=== PATIENT | female | born 1990 | race Asian ===

== ENCOUNTER 2017-03-04 22:00 | Inpatient (IN) | payer OTHER ==
--- NOTE | 2017-03-04 23:13 | HP ---
Past Medical History - Admission Chief Complaint: Labor pain History of Present Illness: 26 yo @ 39 weeks gestation, EDC 03/07/17, presents c/o labor pain. She denies any vaginal bleeding nor rupture of membrane. History Source: Patient Limitations to Obtaining History: No Limitations - Past Medical History ...: 2 ...Para: 1 ...EDC by Lukeo: 03/07/17 - Past Surgical History Past Surgical History: Yes: None Hx Myomectomy: No Hx Transabdominal Cerclage: No - Smoking History Have you smoked in the past 12 months: No - Alcohol/Substance Use Hx Alcohol Use: No History of Substance Use: reports: None - Social History Usual Living Arrangement: Yes: With Spouse History of Recent Travel: No Family Disease History - Family Disease History Family History: Unremarkable Review of Systems - Review of Systems Constitutional: reports: No Symptoms Eyes: reports: No Symptoms HENT: reports: No Symptoms Neck: reports: No Symptoms Cardiovascular: reports: No Symptoms Respiratory: reports: No Symptoms Gastrointestinal: reports: No Symptoms Genitourinary: reports: Pain Breasts: reports: No Symptoms Reported Musculoskeletal: reports: No Symptoms Integumentary: reports: No Symptoms Neurological: reports: No Symptoms Endocrine: reports: No Symptoms Hematology/Lymphatic: reports: No Symptoms Psychiatric: reports: No Symptoms Pain Intensity: 6 Physical Exam - Maternity Constitutional: Yes: Well Nourished Eyes: Yes: Conjunctiva Clear HENT: Yes: Atraumatic Neck: Yes: Supple, Trachea Midline Cardiovascular: Yes: Regular Rate and Rhythm Lungs: Clear to auscultation Breast(s): Yes: WNL - Abdominal Exam/OB Number of Fetuses: Single Presentation: Vertex Contractions: Yes Regularity: Regular Intensity: Moderate Category: I Decelerations: None - Vaginal Exam/OB Vaginal Bleediing: No Speculum Exam: No Dilatation (cm): 6 Effacement (%): 90 Amniotic Membrane Status: Intact Presentation: Vertex/Position Station: -2 - Physical Exam Musculoskeletal: Yes: WNL Extremities: Yes: WNL Integumentary: Yes: WNL ...Motor Strength: WNL Psychiatric: Yes: Alert, Oriented Problem List - Problems (1) Pain during labor Code(s): O99.89 - OTH DISEASES AND CONDITIONS COMPL PREG/CHLDBRTH R52 - PAIN, UNSPECIFIED Assessment/Plan Active labor Admit to L&D Analgesia as needed Anticipate
[2017-03-04] MEDS ORDERED: DEXTROSE 5%-LACTATED RINGERS 1,000 ML IV SCH ×2 (23:15→23:30)
[2017-03-04] MEDS ORDERED: BUTORPHANOL TARTRATE 1 MG/ML VIAL IVPUSH PRN (23:16)
[2017-03-04] MEDS ORDERED: PROMETHAZINE HCL 25 MG/1 ML VIAL IVPB PRN (23:17)
[2017-03-04 23:26] VITALS: BMI 24.7
[2017-03-04 23:28] LABS: BASOPHIL 0.3 % (0-2.0); EOSINOPHIL 0.4 % (0-4.5); MCH 20.1 pg (25.7-33.7); MCHC 31.3 g/dl (32.0-36.0); MEAN PLT VOLUME 7.4 fl (7.5-11.1); NEUTROPHILS 62.8 % (42.8-82.8); PLATELET COUNT 258 K/MM3 (134-434); RDW 16.1 % (11.6-15.6); WHITE BLOOD COUNT 17.9 K/mm3 (4.0-10.0)
[2017-03-04] MEDS ORDERED: TUBERCULIN PPD 5 TU/0.1ML SYRINGE (IN PATIENT USE ONLY) ID ONE (23:30)
[2017-03-04 23:43] LABS: INR 0.94 (0.82-1.09); PROTHROMBIN TIME (PATIENT) 10.3 SEC (9.98-11.88)
[2017-03-05 00:13] LABS: ANION GAP 12 (8-16); CALCIUM 9.1 mg/dL (8.5-10.1); CO2 24 mmol/L (21-32); CREATININE 0.5 mg/dL (0.55-1.02); GLUCOSE,RANDOM 75 mg/dL (74-106)
[2017-03-05] MEDS: D5W-LR W/ 20 UNITS OXYTOCIN 1,000 ML IV SCH ×2 (00:35→11:00)
[2017-03-05] MEDS ORDERED: WITCH HAZEL 50% (TUCKS) 40 PAD/JAR PAD TP PRN (00:54)
[2017-03-05] MEDS ORDERED: METHYLERGONOVINE MALEATE 0.2 MG/1 ML AMP IM PRN (00:54)
[2017-03-05] MEDS ORDERED: BENZOCAINE 20% 57 GM BOTTLE TP PRN (00:54)
[2017-03-05] MEDS ORDERED: BISACODYL 10 MG SUPP.RECT RC PRN (00:54)
[2017-03-05] MEDS ORDERED: BENZOCAINE 28 GM HEMORRHOIDAL OINTMENT TP PRN (00:54)
--- NOTE | 2017-03-05 00:58 | PN ---
Delivery - Delivery Vaginal Delivery: Spontaneous Type of Anesthesia: Local Episiotomy/Laceration: 1st degree EBL (cc): 250 Delivery, Single - Stages of Labor Date 1st Stage Initiatied: 03/04/17 Time 1st Stage Initiated: 16:00 Date 2nd Stage Initiated: 03/05/17 Time 2nd Stage Initiated: 00:25 Date of Delivery: 03/05/17 Time of Delivery: 00:32 Time Placenta Delivered: 00:35 - Condition of Mercury Purifier/Fire Operations Forester Present: No Gender: Male Position: Left, OA Total Hours ROM (Hrs/Mins): 2h - 1 Minute Total Score: 9 5 Minutes Total Score: 9 - Feeding Plan Initial Plan: Elected not to breastfeed exclusively throughout hospitalization Remarks - Remarks Remarks: Normal spontaneous vaginal delivery of a live boy. Nose / Oropharynx suctioned @ perineum. Cord clamped and cut. Placenta expelled spontaneously intact. First degree laceration repaired with 2.0 Biosyn.
--- NOTE | 2017-03-05 01:02 | DS ---
Physical Exam-PERSONAL FINANCIAL COUNSELOR Vital Signs: Vital Signs Temperature 98.1 F 03/05/17 00:00 Pulse Rate 111 H 03/05/17 00:00 Respiratory Rate 20 03/05/17 00:00 Blood Pressure 140/91 03/05/17 00:00 O2 Sat by Pulse Oximetry (%) Constitutional: Yes: Well Nourished Eyes: Yes: Conjunctiva Clear HENT: Yes: Atraumatic Neck: Yes: Supple, Trachea Midline Cardiovascular: Yes: Regular Rate and Rhythm Respiratory: Yes: Regular, CTA Bilaterally Gastrointestinal: Yes: Normal Bowel Sounds Vaginal Exam: Yes: Normal Cervix: Yes: Normal Uterus: Yes: Firm ....Post : Yes: Uterus firm, Moderate lochia serosa Breast(s): Yes: WNL Musculoskeletal: Yes: WNL Extremities: Yes: WNL Neurological: Yes: Alert, Oriented ...Motor Strength: WNL Psychiatric: Yes: Alert, Oriented Labs: CBC, BMP 03/04/17 23:05 03/04/17 23:05 Delivery - Delivery Vaginal Delivery: Spontaneous Type of Anesthesia: Local Episiotomy/Laceration: 1st degree EBL (cc): 250 Delivery, Single - Stages of Labor Date 1st Stage Initiatied: 03/04/17 Time 1st Stage Initiated: 16:00 Date 2nd Stage Initiated: 03/05/17 Time 2nd Stage Initiated: 00:25 Date of Delivery: 03/05/17 Time of Delivery: 00:32 Time Placenta Delivered: 00:35 - Condition of Supervisor Reclamation/Supervisor Die Casting Present: No Infant Gender: Male Position: Left, OA Total Hours ROM (Hrs/Mins): 2h - 1 Minute Total Score: 9 5 Minutes Total Score: 9 - Feeding Plan Initial Plan: Elected not to breastfeed exclusively throughout hospitalization Discharge Summary Reason For Visit: LABOR Current Active Problems Pain during labor (Acute) Status post normal vaginal delivery (Acute) Procedures: Principal: Normal spontaneous vaginal delivery Hospital Course: Routine care Condition: Good - Instructions Diet, Activity, Other Instructions: Regular diet No douching, no sexual intercourse x 6 weeks Referrals: Morena Pinedo MD [Staff Physician] - Disposition: HOME - Home Medications Comprehensive Discharge Medication List: Ambulatory Orders Vit/Iron Fumarate/FA [ Tablet] 1 tablet PO DAILY 03/05/17
[2017-03-05 01:07] LABS: HIV 1 & 2 AB NEGATIVE; HIV 1 AGp24 NEGATIVE
[2017-03-05 01:47] LABS: ANISOCYTOSIS OCC; HYPOCHROMIA OCC; POLYCHROMASIA FEW
[2017-03-05 01:48] LABS: MICROCYTOSIS OCC; PLATELET ESTIMATE ADEQUATE (NORMAL)
[2017-03-05] MEDS: ACETAMINOPHEN 325 MG TABLET (FP) PO PRN ×2 (03:51→15:55)
[2017-03-05] MEDS: IBUPROFEN 600 MG TABLET (FP) PO PRN ×2 (03:53→15:53)
[2017-03-05] MEDS: FERROUS SO4 325 MG TABLET (FP) PO SCH ×3 (09:02→17:56)
[2017-03-05] MEDS: PRENATAL VITAMINS W/ FOLIC ACID TABLET (FP) PO SCH (09:03)
[2017-03-06] MEDS: IBUPROFEN 600 MG TABLET (FP) PO PRN ×2 (07:24→17:09)
[2017-03-06] MEDS: ACETAMINOPHEN 325 MG TABLET (FP) PO PRN ×3 (07:25→22:07)
[2017-03-06] MEDS: FERROUS SO4 325 MG TABLET (FP) PO SCH ×3 (07:26→17:10)
[2017-03-06 08:18] LABS: BASOPHIL 0.6 % (0-2.0); EOSINOPHIL 1.9 % (0-4.5); MCH 20.8 pg (25.7-33.7); MCHC 32.6 g/dl (32.0-36.0); MEAN CELL VOLUME 63.6 fl (80-96); MEAN PLT VOLUME 6.9 fl (7.5-11.1); PLATELET COUNT 230 K/MM3 (134-434); RDW 16.2 % (11.6-15.6); WHITE BLOOD COUNT 17.3 K/mm3 (4.0-10.0)
[2017-03-06] MEDS: PRENATAL VITAMINS W/ FOLIC ACID TABLET (FP) PO SCH (09:36)
--- NOTE | 2017-03-06 16:47 | PN ---
Post Progress Note - Subjective Subjective: Pt seen/evaluated and doing well. Pain controlled, tolerating diet, voiding, ambulating. Moderate lochia overnight, now scant. Denies dizziness. Denies CP/SOB/F/C/AL. Post Day: 1 Type of Delivery: Vital Signs: Vital Signs Temperature 98.2 F 03/06/17 07:15 Pulse Rate 68 03/06/17 07:15 Respiratory Rate 20 03/06/17 07:15 Blood Pressure 124/70 03/06/17 07:15 O2 Sat by Pulse Oximetry (%) 98 03/05/17 01:10 Uterus: Yes: Fundus Firm, Fundus below umbilicus Lochia, amount: Small Extremities: Yes: Calves non-tender. No: Edema Perineum: Yes: Laceration (repaired) Activity: Ambulating - Labs Labs: CBC WBC 17.3 K/mm3 (4.0-10.0) H 03/06/17 07:50 RBC 4.73 M/mm3 (3.60-5.2) 03/06/17 07:50 Hgb 9.8 GM/dL (10.7-15.3) L D 03/06/17 07:50 Hct 30.1 % (32.4-45.2) L D 03/06/17 07:50 MCV 63.6 fl (80-96) L 03/06/17 07:50 MCHC 32.6 g/dl (32.0-36.0) 03/06/17 07:50 RDW 16.2 % (11.6-15.6) H 03/06/17 07:50 Plt Count 230 K/MM3 (134-434) 03/06/17 07:50 MPV 6.9 fl (7.5-11.1) L 03/06/17 07:50 Neutrophils % 67.0 % (42.8-82.8) 03/06/17 07:50 Lymphocytes % 26.3 % (8-40) 03/06/17 07:50 Monocytes % 4.2 % (3.8-10.2) 03/06/17 07:50 Eosinophils % 1.9 % (0-4.5) D 03/06/17 07:50 Basophils % 0.6 % (0-2.0) 03/06/17 07:50 Platelet Estimate Adequate (NORMAL) 03/04/17 23:05 Polychromasia Few 03/04/17 23:05 Hypochromic-Microcytic Occ 03/04/17 23:05 Anisocytosis Occ 03/04/17 23:05 Microcytosis Occ 03/04/17 23:05 Macrocytosis Occ 03/04/17 23:05 Problem List - Problems (1) Status post normal vaginal delivery Code(s): MOE0736 - (2) Anemia Code(s): D64.9 - ANEMIA, UNSPECIFIED Assessment/Plan 26 y/o post day #1 s/p normal - AFVSS - Hgb 9.8, continue vitamins, lochia minimal, pt stable/asymptomatic - regular diet, ambulation, PO pain meds - routine care, plan for discharge home in a.m.
[2017-03-06] MEDS ORDERED: SENNOSIDES/DOCUSATE COMBO (SENNA PLUS) TABLET (UD) PO PRN (22:00)
[2017-03-07] MEDS: FERROUS SO4 325 MG TABLET (FP) PO SCH (08:00)
[2017-03-07] MEDS: PRENATAL VITAMINS W/ FOLIC ACID TABLET (FP) PO SCH (10:46)
[2017-03-07 11:45] VITALS: BP 118/64; PULSE 76; TEMP 97.9
== END 2017-03-07 11:50 | disposition home or self-care (01) | DRG 560 ==
LOC: JLDR 22:00 → J3W 03-05 02:01
PROVIDERS: ADMIT Obstetrics & Gynecology; ATTEND Obstetrics & Gynecology
PROC: 0HQ9XZZ Repair Perineum Skin, External Approach (ICD-10-PCS; principal; 2017-03-05)
PROC: 10E0XZZ Delivery of Products of Conception, External Approach (ICD-10-PCS; 2017-03-05)
DX: O70.0 First degree perineal laceration during delivery (principal); Z3A.38 38 weeks gestation of pregnancy; Z37.0 Single live birth; O90.81 Anemia of the puerperium
CPT/HCPCS: 36415; 59409; 80048; 85025; 85610; 85730; 86593; 86850; 86900; 86901; 87389

== ENCOUNTER 2019-11-12 17:25 | Inpatient (IN) | payer OTHER ==
[2019-11-12 18:01] VITALS: BMI 26.4
[2019-11-12 19:17] LABS: BASO % 0.2 % (0-2.0); EOS % 0.8 % (0-4.5); HEMATOCRIT 34.8 % (32.4-45.2); HEMOGLOBIN 11.1 GM/dL (10.7-15.3); LYMPH % 30.4 % (8-40); MCH 20.8 pg (25.7-33.7); MEAN CELL VOLUME 64.9 fl (80-96); MEAN PLT VOLUME 7.6 fl (7.5-11.1); MONO % 6.9 % (3.8-10.2); NEUT % 61.7 % (42.8-82.8); PLATELET COUNT 272 K/MM3 (134-434); RBC 5.36 M/mm3 (3.60-5.2); RDW 15.7 % (11.6-15.6)
[2019-11-12] MEDS ORDERED: DINOPROSTONE 10 MG VAGINAL SUPPOSITORY VG ONE (19:30)
[2019-11-12 19:32] LABS: INR 0.98 (0.83-1.09); PROTHROMBIN TIME (PATIENT) 11.6 SEC (9.7-13.0)
[2019-11-12 19:35] LABS: ACTIVATED PTT 27.1 SECONDS (25.2-36.5)
[2019-11-12 19:48] LABS: BLOOD UREA NITROGEN 11.4 mg/dL (7-18); CALCIUM 9.1 mg/dL (8.5-10.1); CREATININE 0.5 mg/dL (0.55-1.3); POTASSIUM 3.9 mmol/L (3.5-5.1)
[2019-11-12] MEDS: DEXTROSE 5%-LACTATED RINGERS 1,000 ML IV SCH ×2 (20:00→21:00)
[2019-11-12 20:29] LABS: ANISOCYTOSIS 1+; PLATELET ESTIMATE ADEQUATE; TEAR DROP CELLS 1+
[2019-11-12] MEDS ORDERED: CITRIC ACID/SODIUM CITRATE 30 ML UNIT-DOSE CUP PO ONE (21:26)
--- NOTE | 2019-11-12 21:35 | HP ---
Past Medical History - Admission Chief Complaint: Elective induction History of Present Illness: 28 yo , @ 40 weeks gestation, EDC 11/12/19, admitted for induction of labor. She has no complaints. She carries a fetus with mild enlargement of the ventricles. History Source: Patient Limitations to Obtaining History: No Limitations - Past Medical History ...: 3 ...Para: 2 ...Term: 2 ...EDC by Sono: 11/12/19 - Past Surgical History Past Surgical History: Yes: None Hx Myomectomy: No Hx Transabdominal Cerclage: No - Smoking History Smoking history: Never smoked Have you smoked in the past 12 months: No - Alcohol/Substance Use Hx Alcohol Use: No History of Substance Use: reports: None - Social History History of Recent Travel: No Home Medications - Allergies Allergies/Adverse Reactions: Allergies Allergy/AdvReac Type Severity Reaction Status Date / Time No Known Drug Allergies Allergy Verified 11/12/19 17:39 - Home Medications Home Medications: Ambulatory Orders Vit/Iron Fum/Folic AC [ Tablet] 1 tablet PO DAILY 03/05/17 Ferrous Sulfate [Feosol] 325 mg PO DAILY 11/02/19 Family Medical History Family History: Unremarkable Review of Systems - Review of Systems Constitutional: reports: No Symptoms Eyes: reports: No Symptoms HENT: reports: No Symptoms Neck: reports: No Symptoms Cardiovascular: reports: No Symptoms Respiratory: reports: No Symptoms Genitourinary: reports: No Symptoms Breasts: reports: No Symptoms Reported Musculoskeletal: reports: No Symptoms Integumentary: reports: No Symptoms Neurological: reports: No Symptoms Psychiatric: reports: No Symptoms Pain Intensity: 0 Physical Exam - Maternity Vital Signs: Vital Signs Temperature 98.7 F 11/12/19 17:30 Pulse Rate 88 11/12/19 21:00 Respiratory Rate 20 11/12/19 21:00 Blood Pressure 133/66 11/12/19 21:00 O2 Sat by Pulse Oximetry (%) Constitutional: Yes: No Distress Eyes: Yes: Conjunctiva Clear HENT: Yes: Atraumatic Neck: Yes: Supple Cardiovascular: Yes: Regular Rate and Rhythm Lungs: Clear to auscultation - Abdominal Exam/OB Number of Fetuses: Single Presentation: Vertex - Vaginal Exam/OB Dilatation (cm): 1 Effacement (%): 60 Amniotic Membrane Status: Intact - Physical Exam ...Motor Strength: WNL Psychiatric: Yes: Alert, Oriented - Labs Lab Results: CBC, BMP 11/12/19 18:30 11/12/19 18:30 Problem List - Problems (1) 40 weeks gestation of Problems reviewed: Yes Code(s): Z3A.40 - 40 WEEKS GESTATION OF Assessment/Plan 40 weeks gestation Admit to L&D Cervidil induction Chain Mender for delivery
[2019-11-12] MEDS ORDERED: PROMETHAZINE HCL 25 MG/1 ML VIAL ONE (23:29)
[2019-11-12] MEDS ORDERED: BUTORPHANOL TARTRATE 1 MG/ML VIAL ONE (23:29)
--- NOTE | 2019-11-12 23:35 | CONSULT ---
Past Medical History, Laborist - Admission Chief Complaint: tachycardia History of Present Illness: Called to pt. at 21:15 hours because of tachycardia. Cervidil induction. Pt. developed active, painful ctx. Cervidil removed. FH cat 2. Baseline seems to be 160 with multiple accelerations. Tachysystole. Uncomfortable. D/W PCP. Stadol/Phenergan to slow ctx and relieve pt's pain. History Source: Patient, Medical Record Limitations to Obtaining History: No Limitations - Past Medical History CREDIT MANAGER: Denies/None Cardio/Vascular: Denies/None Pulmonary: Denies/None Gastrointestinal: Denies/None Hepatobiliary: Denies/None Renal/: Denies/None Reproductive: Denies/None ...: 3 ...Para: 2 ...Term: 2 ...EDC by Michel: 11/12/19 Heme/Onc: Denies/None Infectious Disease: Denies/None Psych: Denies/None Musculoskeletal: Denies/None Rheumatology: Denies/None ENT: Denies/None Endocrine: Denies/None Dermatology: Denies/None - Past Surgical History Past Surgical History: Yes: None - Smoking History Smoking history: Never smoked Have you smoked in the past 12 months: No - Alcohol/Substance Use Hx Alcohol Use: No History of Substance Use: reports: None - Social History History of Recent Travel: No Review of Systems - Review of Systems Constitutional: reports: No Symptoms Eyes: reports: No Symptoms HENT: reports: No Symptoms Neck: reports: No Symptoms Cardiovascular: reports: No Symptoms Respiratory: reports: No Symptoms Gastrointestinal: reports: No Symptoms Genitourinary: reports: No Symptoms Breasts: reports: No Symptoms Reported Musculoskeletal: reports: No Symptoms Integumentary: reports: No Symptoms Neurological: reports: No Symptoms Endocrine: reports: No Symptoms Hematology/Lymphatic: reports: No Symptoms Psychiatric: reports: No Symptoms Physical Exam - Maternity Vital Signs: Vital Signs Temperature 98.7 F 11/12/19 22:00 Pulse Rate 85 11/12/19 23:00 Respiratory Rate 20 11/12/19 23:00 Blood Pressure 113/71 11/12/19 23:00 O2 Sat by Pulse Oximetry (%) Constitutional: Yes: Well Nourished, No Distress, Calm Eyes: Yes: WNL, Conjunctiva Clear, EOM Intact HENT: Yes: WNL, Atraumatic, Normocephalic Neck: Yes: WNL, Supple, Trachea Midline Cardiovascular: Yes: WNL, Regular Rate and Rhythm Breast(s): Yes: WNL - Abdominal Exam/OB Fundal Height: 40 Number of Fetuses: Single Presentation: Vertex Contractions: Yes Regularity: Tripling Intensity: Moderate Monitor Mode: External Heart Rate (range): 160 Heart Rate Location: RUQ Category: II Accelerations: Uniform Decelerations: None - Vaginal Exam/OB Vaginal Bleediing: No Dilatation (cm): 0 Effacement (%): 0 Amniotic Membrane Status: Intact Presentation: Vertex/Position Station: -3 - Physical Exam Musculoskeletal: Yes: WNL Extremities: Yes: WNL Edema: Yes Integumentary: Yes: WNL ...Motor Strength: WNL Psychiatric: Yes: WNL - Labs Lab Results: CBC, BMP 11/12/19 18:30 11/12/19 18:30 Problem List - Problems (1) tachycardia Code(s): LYJ1669 - (2) 40 weeks gestation of Code(s): Z3A.40 - 40 WEEKS GESTATION OF Assessment/Plan Stable. Stadol 1mg/ Phenergan 25 mg. Observe. D/W pt. and attending.
[2019-11-12] MEDS ORDERED: PROMETHAZINE HCL 25 MG/1 ML VIAL IVPB ONE (23:45)
[2019-11-12] MEDS ORDERED: BUTORPHANOL TARTRATE 1 MG/ML VIAL IVPB ONE (23:45)
[2019-11-13] MEDS: ELECTROLYTE-148 SOLN 1,000 ML IV SCH
[2019-11-13] MEDS ORDERED: FENTANYL/BUPIVACAINE/NS/PF - PCEA - 50 ML DISP.SYRIN EP ONE (07:48)
[2019-11-13] MEDS: FENTANYL/BUPIVACAINE/NS/PF - PCEA - 50 ML DISP.SYRIN EP SCH (08:15)
[2019-11-13] MEDS ORDERED: BUPIVACAINE HCL/PF 0.25% (2.5MG/ML) 10 ML VIAL ONE (08:23)
[2019-11-13] MEDS ORDERED: NALOXONE HCL 0.4 MG/ML VIAL IVPUSH PRN (08:44)
[2019-11-13] MEDS ORDERED: OXYTOCIN 30 UNITS in 0.9% NS 30 UNIT/500 ML INFUS.BAG IVPB ONE (09:01)
[2019-11-13] MEDS ORDERED: OXYTOCIN 30 UNITS in 0.9% NS 30 UNIT/500 ML INFUS.BAG IVPB SCH (09:15)
[2019-11-13] MEDS ORDERED: OXYTOCIN 20 UNITS in 0.9% NS 20 UNIT/1,000 ML INFUS.BAG IV ONE (10:54)
[2019-11-13] MEDS: METHYLERGONOVINE MALEATE 0.2 MG/1 ML AMP IM PRN ×2 (12:30→21:16)
[2019-11-13] MEDS ORDERED: BENZOCAINE 20% 57 GM BOTTLE TP PRN ×2 (13:31→13:32)
[2019-11-13] MEDS ORDERED: METHYLERGONOVINE MALEATE 0.2 MG/1 ML AMP IM PRN (13:31)
[2019-11-13] MEDS ORDERED: WITCH HAZEL 50% (TUCKS) 40 PAD/JAR PAD TP PRN ×2 (13:31→13:32)
[2019-11-13] MEDS ORDERED: ACETAMINOPHEN 325 MG TABLET (FP) PO PRN (13:31)
[2019-11-13] MEDS ORDERED: IBUPROFEN 600 MG TABLET (FP) PO PRN (13:31)
[2019-11-13] MEDS ORDERED: BISACODYL 10 MG SUPP.RECT RC PRN ×2 (13:31→13:32)
[2019-11-13] MEDS ORDERED: BENZOCAINE 28 GM HEMORRHOIDAL OINTMENT TP PRN ×2 (13:31→13:32)
--- NOTE | 2019-11-13 13:35 | PN ---
Delivery - Delivery Vaginal Delivery: Spontaneous Type of Anesthesia: Epidural Episiotomy/Laceration: 1st degree EBL (cc): 300 Delivery, Single - Stages of Labor Date 1st Stage Initiatied: 11/12/19 Time 1st Stage Initiated: 20:00 Date 2nd Stage Initiated: 11/13/19 Time 2nd Stage Initiated: 10:55 Date of Delivery: 11/13/19 Time of Delivery: 11:17 Time Placenta Delivered: 11:19 - Condition of Infant Pleating Machine Operator/Cut Press Operator Present: Yes Infant Gender: Male Weight: 7 lb 14 oz Position: Left, OA Total Hours ROM (Hrs/Mins): 3 hr 44 minutes - 1 Minute Total Score: 9 5 Minutes Total Score: 9 - Feeding Plan Initial Plan: Exclusive throughout hospitalization Remarks - Remarks Remarks: Normal spontaneous vaginal delivery of a live boy over first degree laceration. Nose / Oropharynx suctioned @ perineum. Cord clamped and cut. Baby handed to nurse. Placenta expelled spontaneously intact. Laceration repaired with 2.0 Chromic. Mother in stable condition.
[2019-11-13] MEDS ORDERED: ACETAMINOPHEN 325 MG TABLET (FP) ONE (13:44)
[2019-11-13] MEDS ORDERED: OXYTOCIN 20 UNITS in 0.9% NS 20 UNIT/1,000 ML INFUS.BAG IV SCH (13:45)
[2019-11-13] MEDS: ACETAMINOPHEN 325 MG TABLET (FP) PO PRN ×2 (13:45→21:11)
[2019-11-13] MEDS ORDERED: PROMETHAZINE HCL 25 MG/1 ML VIAL ONE (14:23)
[2019-11-13] MEDS ORDERED: BUTORPHANOL TARTRATE 1 MG/ML VIAL ONE ×2 (14:23)
[2019-11-13] MEDS: FERROUS SO4 325 MG TABLET (FP) PO SCH (17:12)
[2019-11-13] MEDS: IBUPROFEN 600 MG TABLET (FP) PO PRN (21:11)
[2019-11-14] MEDS: ACETAMINOPHEN 325 MG TABLET (FP) PO PRN (01:31)
[2019-11-14 08:39] LABS: BASO % 0.3 % (0-2.0); EOS % 1.2 % (0-4.5); HEMATOCRIT 30.9 % (32.4-45.2); HEMOGLOBIN 9.9 GM/dL (10.7-15.3); LYMPH % 28.4 % (8-40); MCH 20.7 pg (25.7-33.7); MEAN CELL VOLUME 64.7 fl (80-96); MEAN PLT VOLUME 7.4 fl (7.5-11.1); MONO % 4.3 % (3.8-10.2); NEUT % 65.8 % (42.8-82.8); PLATELET COUNT 239 K/MM3 (134-434); RBC 4.77 M/mm3 (3.60-5.2); RDW 16.4 % (11.6-15.6); WHITE BLOOD COUNT 13.3 K/mm3 (4.0-10.0)
[2019-11-14] MEDS ORDERED: LACTATED RINGERS SOLUTION 1,000 ML/1,000 ML INFUS.BAG IV STA (08:51)
[2019-11-14] MEDS: DOCUSATE SODIUM 100 MG CAPSULE (FP) PO SCH ×2 (09:12→21:23)
[2019-11-14] MEDS: ACETAMINOPHEN/CAFFEINE/BUTALBITAL 1 TAB PO PRN ×4 (09:12→21:24)
[2019-11-14] MEDS: PRENATAL VITAMINS W/ FOLIC ACID TABLET (FP) PO SCH (09:12)
[2019-11-14] MEDS: FERROUS SO4 325 MG TABLET (FP) PO SCH ×2 (09:12→17:52)
[2019-11-14] MEDS: IBUPROFEN 600 MG TABLET (FP) PO PRN ×4 (09:13→22:53)
[2019-11-14] MEDS: FENTANYL/BUPIVACAINE/NS/PF - PCEA - 50 ML DISP.SYRIN EP SCH (09:28)
[2019-11-14] MEDS: ELECTROLYTE-148 SOLN 1,000 ML IV SCH (09:28)
[2019-11-14] MEDS: DEXTROSE 5%-LACTATED RINGERS 1,000 ML IV SCH (09:29)
--- NOTE | 2019-11-14 09:31 | PN ---
Post Note - Post Date of Delivery: 11/13/19 Post Day: 1 Vital Signs: Vital Signs - 24 hr 11/13/19 11/13/19 11/13/19 09:45 10:00 10:15 Temperature Pulse Rate 91 H 76 87 Respiratory 17 17 17 Rate Blood Pressure 113/82 113/68 124/76 O2 Sat by Pulse 99 99 100 Oximetry (%) 11/13/19 11/13/19 11/13/19 10:30 10:45 11:00 Temperature Pulse Rate 81 90 83 Respiratory 17 17 18 Rate Blood Pressure 112/77 122/87 136/79 O2 Sat by Pulse 100 100 100 Oximetry (%) 11/13/19 11/13/19 11/13/19 11:15 11:25 11:40 Temperature 98.1 F Pulse Rate 95 H 86 80 Respiratory 17 17 17 Rate Blood Pressure 138/90 125/69 106/68 O2 Sat by Pulse 100 100 100 Oximetry (%) 11/13/19 11/13/19 11/13/19 11:55 12:10 12:30 Temperature Pulse Rate 75 72 79 Respiratory 17 18 17 Rate Blood Pressure 117/67 118/71 112/62 O2 Sat by Pulse 100 100 98 Oximetry (%) 11/13/19 11/13/19 11/13/19 12:55 13:30 14:00 Temperature 97.6 F Pulse Rate 79 78 77 Respiratory 17 17 18 Rate Blood Pressure 124/73 129/72 133/80 O2 Sat by Pulse 100 Oximetry (%) 11/13/19 11/13/19 11/14/19 18:00 22:00 01:40 Temperature 97.9 F 98.1 F 97.9 F Pulse Rate 82 73 64 Respiratory 20 20 20 Rate Blood Pressure 118/66 121/69 129/74 O2 Sat by Pulse Oximetry (%) 11/14/19 11/14/19 06:00 08:58 Temperature 97.3 F L 97.3 F L Pulse Rate 59 L 61 Respiratory 20 17 Rate Blood Pressure 128/72 117/70 O2 Sat by Pulse Oximetry (%) Labs: Laboratory Results - last 24 hr 11/14/19 07:25 WBC 13.3 H RBC 4.77 Hgb 9.9 L Hct 30.9 L MCV 64.7 L MCH 20.7 L MCHC 32.0 RDW 16.4 H Plt Count 239 MPV 7.4 L Absolute Neuts (auto) 8.8 H Neutrophils % 65.8 Lymphocytes % 28.4 Monocytes % 4.3 Eosinophils % 1.2 Basophils % 0.3 Nucleated RBC % 0 - Subjective Subjective: Other (Headacheafter epidural) - Objective Afebrile: Yes Breast: Not engorged Abdomen: Soft, Non-tender Uterus: Fundus firm Vagina: Scant lochia Extremities: Non-tender - Assessment/Plan (1) Status post normal vaginal delivery Assessment: S/P Normal Plan: Routine Care, Other (anesthesia consult)
[2019-11-14] MEDS ORDERED: PRENATAL VITAMINS W/ FOLIC ACID TABLET (FP) PO SCH (10:00)
[2019-11-14] MEDS ORDERED: LACTATED RINGERS SOLUTION 1,000 ML/1,000 ML INFUS.BAG IV SCH (10:15)
[2019-11-14] MEDS ORDERED: SENNOSIDES/DOCUSATE COMBO (SENNA PLUS) TABLET (UD) PO PRN ×2 (13:32→22:00)
[2019-11-14 21:34] VITALS: TEMP 97.8
--- NOTE | 2019-11-15 08:02 | DS ---
Physical Exam-PLANT PRODUCTION WORKER Vital Signs: Vital Signs Temperature 97.8 F 11/14/19 21:33 Pulse Rate 64 11/14/19 21:33 Respiratory Rate 18 11/14/19 21:33 Blood Pressure 102/50 L 11/14/19 21:33 O2 Sat by Pulse Oximetry (%) 100 11/13/19 12:55 Constitutional: Yes: Well Nourished, No Distress Labs: CBC, BMP 11/14/19 07:25 11/12/19 18:30 Delivery - Delivery Vaginal Delivery: Spontaneous Type of Anesthesia: Epidural Episiotomy/Laceration: 1st degree EBL (cc): 300 Delivery, Single - Stages of Labor Date 1st Stage Initiatied: 11/12/19 Time 1st Stage Initiated: 20:00 Date 2nd Stage Initiated: 11/13/19 Time 2nd Stage Initiated: 10:55 Date of Delivery: 11/13/19 Time of Delivery: 11:17 Time Placenta Delivered: 11:19 - Condition of Infant Embedded Linux Engineer/Watchmaker Apprentice Present: Yes Infant Gender: Male Weight: 7 lb 14 oz Position: Left, OA Total Hours ROM (Hrs/Mins): 3 hr 44 minutes - 1 Minute Total Score: 9 5 Minutes Total Score: 9 - Feeding Plan Initial Plan: Exclusive throughout hospitalization Discharge Summary Problems reviewed: Yes Reason For Visit: INDUCTION OF LABOR Current Active Problems 40 weeks gestation of (Acute) tachycardia (Acute) Procedures: Principal: Normal vaginal delivery Condition: Good - Instructions - Home Medications Comprehensive Discharge Medication List: Ambulatory Orders Vit/Iron Fum/Folic AC [ Tablet] 1 tablet PO DAILY 03/05/17 Ferrous Sulfate [Feosol] 325 mg PO DAILY 11/02/19 Ibuprofen [Motrin -] 600 mg PO QID #28 tablet 11/15/19
--- NOTE | 2019-11-15 08:38 | PN ---
Progress Note (short form) - Note Progress Note: Asked to see patient for possible PDPH. Pt describes mild/moderate headache starting about 2-4 hours after delivery. Worse when sitting and standing and slightly better when supine. Radiates from the back of her neck to the front of her head. Fioricet improved the pain significantly. Denies N/V, hearing loss, tinnitus, visual changes or light sensitivity. My entire interview was conducted with the patient sitting up. She was able to participate without much pain and despite offering her to lie down, she remained seated. She is able to ambulate without difficulty as well. I explained the risk of a blood patch specifically the potential to cause a severe post dural puncture headache. At this time she wishes to continue conservative therapy. I explained that if the symptoms worsen to let her nurse know and we can revisit blood patch therapy.
[2019-11-15] MEDS: ACETAMINOPHEN/CAFFEINE/BUTALBITAL 1 TAB PO PRN ×2 (08:45→11:53)
[2019-11-15] MEDS: FERROUS SO4 325 MG TABLET (FP) PO SCH (08:46)
[2019-11-15] MEDS: IBUPROFEN 600 MG TABLET (FP) PO PRN ×2 (08:46→11:54)
[2019-11-15] MEDS: ELECTROLYTE-148 SOLN 1,000 ML IV SCH (08:58)
[2019-11-15] MEDS: DEXTROSE 5%-LACTATED RINGERS 1,000 ML IV SCH (08:58)
[2019-11-15] MEDS: FENTANYL/BUPIVACAINE/NS/PF - PCEA - 50 ML DISP.SYRIN EP SCH (09:00)
[2019-11-15] MEDS: DOCUSATE SODIUM 100 MG CAPSULE (FP) PO SCH (09:02)
[2019-11-15] MEDS: PRENATAL VITAMINS W/ FOLIC ACID TABLET (FP) PO SCH (11:28)
[2019-11-15 11:53] VITALS: BP 137/77; PULSE 68
== END 2019-11-15 12:01 | disposition home or self-care (01) | DRG 560 ==
LOC: JLDR 17:25 → J3W 11-13 13:29
PROVIDERS: ADMIT Obstetrics & Gynecology; ATTEND Obstetrics & Gynecology
PROC: 0HQ9XZZ Repair Perineum Skin, External Approach (ICD-10-PCS; principal; 2019-11-13)
PROC: 10E0XZZ Delivery of Products of Conception, External Approach (ICD-10-PCS; 2019-11-13)
DX: O76 Abnormality in fetal heart rate and rhythm complicating labor and delivery (principal); O70.0 First degree perineal laceration during delivery; O90.89 Other complications of the puerperium, not elsewhere classified; R51 Headache; Z3A.40 40 weeks gestation of pregnancy; Z37.0 Single live birth
CPT/HCPCS: 36415; 59409; 80048; 85025; 85610; 85730; 86593; 86850; 86900; 86901

== ENCOUNTER 2021-12-27 14:36 | Emergency (ER) | payer OTHER ==
[2021-12-27 14:45] VITALS: TEMP 97.8; BMI 24.1
[2021-12-27] MEDS ORDERED: LIDOCAINE 5% TOPICAL PATCH TP ONE (16:33)
[2021-12-27] MEDS ORDERED: LIDOCAINE 5% TOPICAL PATCH ONE (16:45)
[2021-12-27 16:50] LABS: EPI CELLS 16 /uL (0-25.1); HCG,QUALITATIVE URINE Negative; HYALINE CASTS 2 /uL (0-3.1); URINE APPEARANCE CLEAR; URINE BACTERIA 506 /uL (0-1359); URINE BILIRUBIN NEGATIVE (NEGATIVE); URINE COLOR YELLOW; URINE GLUCOSE (UA) NEGATIVE (NEGATIVE); URINE KETONE NEGATIVE (NEGATIVE); URINE LEUK ESTERASE 1+ (NEGATIVE); URINE NITRITE NEGATIVE (NEGATIVE); URINE PROTEIN TRACE (NEGATIVE); URINE RBC 29 /uL (0-23.9); URINE UROBILINOGEN 0.2 mg/dL (0.2-1.0); URINE WBC 47 /uL (0-25.8)
[2021-12-27] MEDS ORDERED: KETOROLAC TROMETHAMINE 60 MG/2 ML VIAL IM ONE (17:08)
[2021-12-27] MEDS ORDERED: KETOROLAC TROMETHAMINE 60 MG/2 ML VIAL ONE (17:45)
[2021-12-27 18:13] VITALS: BP 116/78; PULSE 76
[2021-12-27] MEDS ORDERED: LIDOCAINE PATCH REMOVAL MC SCH (22:00)
== END 2021-12-27 18:46 | disposition home or self-care (01) ==
LOC: JER 14:36
PROC: 3E023GC Introduction of Other Therapeutic Substance into Muscle, Percutaneous Approach (ICD-10-PCS; principal; 2021-12-27)
DX: R07.89 Other chest pain (principal); T76.11XA Adult physical abuse, suspected, initial encounter
CPT/HCPCS: 71046-TC-FY; 81003; 84703; 93005; 93010; 99285-25

== ENCOUNTER 2021-12-30 21:32 | Emergency (ER) | payer OTHER ==
[2021-12-30 21:53] VITALS: BP 129/92; PULSE 79; TEMP 98.8; BMI 24.1
[2021-12-30 23:42] LABS: HEMATOCRIT 36.1 % (32.4-45.2); HEMOGLOBIN 12.2 G/dL (10.7-15.3); MCH 20.2 pg (25.7-33.7); MCHC 33.7 g/dl (32.0-36.0); MEAN PLT VOLUME 6.9 fl (7.5-11.1); RBC 6.01 10^6/uL (3.60-5.2); RDW 18.4 % (11.6-15.6); WHITE BLOOD COUNT 12.8 10^3/uL (4.0-10.8)
[2021-12-30 23:43] LABS: ADD RBC MORPHOLOGY YES; ANISOCYTOSIS 2+; PLATELET ESTIMATE ADEQUATE
[2021-12-31 00:29] LABS: CALCIUM 9.3 mg/dL (8.5-10.1)
[2021-12-31 00:30] LABS: ALBUMIN 3.8 g/dl (3.4-5.0); BLOOD UREA NITROGEN 14.4 mg/dL (7-18)
[2021-12-31 00:34] LABS: BILIRUBIN,TOTAL 0.5 mg/dL (0.2-1); TOT PROT 7.6 g/dl (6.4-8.2)
== END 2021-12-31 03:59 | disposition home or self-care (01) ==
LOC: SUPCPDRO 21:32 → FER 21:32
DX: S22.42XA Multiple fractures of ribs, left side, initial encounter for closed fracture (principal); Y04.8XXA Assault by other bodily force, initial encounter
CPT/HCPCS: 36415; 71046-TC-FY; 71101-TC-LT-FY; 71260-TC; 74177-TC; 80053; 83690; 85025; 86850; 86900; 86901; 99285-25; Q9967